=== PATIENT | male | born 1985 | race Caucasian/White ===

== ENCOUNTER 2016-10-11 17:52 | Emergency (ER) | payer OTHER ==
--- NOTE | 2016-10-11 20:14 | ED CLINICAL REPORT ---
Clinical Report - Physicians/Mid Levels [facility] [address] [place] [address] 10/11/2016 17:52 Patient: CAMILA WAKEFIELD Time Seen: 18:11. Arrived- By private vehicle. Historian- patient. HISTORY OF PRESENT ILLNESS Chief Complaint: INGUINAL MASS. This started today and is still present. The problem is described as moderate. It was abrupt in onset and has been constant and waxing/waning. No penile discharge, discomfort with urination, urinary frequency or urgency of urination. He has had mild right-sided inguinal swelling, with pain. Similar symptoms previously: None. REVIEW OF SYSTEMS No chills, fever, sweats, calf pain or chest pain. No cough, difficulty breathing, pedal edema, palpitations or abdominal pain. No diarrhea, nausea, vomiting or urinary problems. All systems otherwise negative, except as recorded above. PAST HISTORY Problems: Concussion. Tip Amputation, Finger. Pancreatitis. Medications: None. Allergies: None. SOCIAL HISTORY Current every day light tobacco smoker (cigarette)- less than 1/2 a pack per day. Occasional alcohol use. 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 FAMILY HISTORY Denies family medical history. ADDITIONAL NOTES The nursing notes have been reviewed. PHYSICAL EXAM Vital Signs: 10/11/2016 18:00 BP: 146/74. HR: 98. RR: 16. O2 saturation: 100%. Temp: 98.3 F. Have been reviewed. Appearance: Alert. ENT: Pharynx normal. Neck: Neck supple. CVS: Heart sounds normal. Respiratory: Breath sounds normal. Abdomen: Soft and nontender. Bowel sounds normal. No organomegaly. No mass. Back: Normal external inspection. : Tenderness (R inguinal region). No urethral discharge, genital lesion or scrotal mass or swelling. Skin: Skin warm and dry. Normal skin color. Normal skin turgor. (multiple small areas of folliculitis noted on his anterior thighs). Extremities: Extremities exhibit normal ROM. No calf tenderness. No lower extremity edema. LABS, X-RAYS, AND EKG Scrotal Sonogram: right inguinal enlarged lymph node. The study was independently viewed by me. PROGRESS AND PROCEDURES Course of Care: Patient is stable. Patient/family counseled. Old medical records ordered. Disposition: Discharged. Condition: stable. CLINICAL IMPRESSION Acute right inguinal lymphadenitis Superficial folliculitis INSTRUCTIONS Warnings: Further evaluation is necessary. GENERAL WARNINGS: Return or contact your physician immediately if your condition worsens or changes unexpectedly, if not improving as expected, or if other problems arise. Prescription Medications: Septra DS 800 mg / 160 mg: take 1 tablet orally every 12 hours for 7 days. Dispense fourteen (14). No refills. Substitution is permissible. Understanding of the discharge instructions verbalized by patient. Follow-up with: [facility], , , [address], , [place], [id number] Follow up in five days. Call for the next available appointment. (Electronically signed by Mark Maurice MD 10/12/2016 9:56)
--- NOTE | 2016-10-11 20:14 | ED ORDER SUMMARY ---
..... 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 (20:30 10/11/2016)] [Electronically signed by Mark Maurice MD (09:56 10/12/2016)] [Electronically locked/signed by Isac Garcia R.N. (20:30 10/11/2016)]
--- NOTE | 2016-10-11 20:14 | ED ORDER SUMMARY ---
..... Patient: CAMILA WAKEFIELD OrderSheet [facility] VisitID: [id number] [address] [place] [address] 31y, M Registration Date/Time: 10/11/2016 ORDER SHEET Weight: 77.1 kg (stated) Allergies: None GENERAL ORDERS: US Scrotum/Testicular Urgent (18:40 10/11/2016 Clementine COOPER) (k 18:43 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 (20:30 10/11/2016)] [Electronically signed by Mark Maurice MD (09:56 10/12/2016)] [Electronically locked/signed by Isac Garcia R.N. (20:30 10/11/2016)]
--- NOTE | 2016-10-11 20:14 | ED CLINICAL REPORT ---
Clinical Report - Physicians/Mid Levels [facility] [address] [place] [address] 10/11/2016 17:52 Patient: CAMILA WAKEFIELD Time Seen: 18:11. Arrived- By private vehicle. Historian- patient. HISTORY OF PRESENT ILLNESS Chief Complaint: INGUINAL MASS. This started today and is still present. The problem is described as moderate. It was abrupt in onset and has been constant and waxing/waning. No penile discharge, discomfort with urination, urinary frequency or urgency of urination. He has had mild right-sided inguinal swelling, with pain. Similar symptoms previously: None. REVIEW OF SYSTEMS No chills, fever, sweats, calf pain or chest pain. No cough, difficulty breathing, pedal edema, palpitations or abdominal pain. No diarrhea, nausea, vomiting or urinary problems. All systems otherwise negative, except as recorded above. PAST HISTORY Problems: Concussion. Tip Amputation, Finger. Pancreatitis. Medications: None. Allergies: None. SOCIAL HISTORY Current every day light tobacco smoker (cigarette)- less than 1/2 a pack per day. Occasional alcohol use. 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 FAMILY HISTORY Denies family medical history. ADDITIONAL NOTES The nursing notes have been reviewed. PHYSICAL EXAM Vital Signs: 10/11/2016 18:00 BP: 146/74. HR: 98. RR: 16. O2 saturation: 100%. Temp: 98.3 F. Have been reviewed. Appearance: Alert. ENT: Pharynx normal. Neck: Neck supple. CVS: Heart sounds normal. Respiratory: Breath sounds normal. Abdomen: Soft and nontender. Bowel sounds normal. No organomegaly. No mass. Back: Normal external inspection. : Tenderness (R inguinal region). No urethral discharge, genital lesion or scrotal mass or swelling. Skin: Skin warm and dry. Normal skin color. Normal skin turgor. (multiple small areas of folliculitis noted on his anterior thighs). Extremities: Extremities exhibit normal ROM. No calf tenderness. No lower extremity edema. LABS, X-RAYS, AND EKG Scrotal Sonogram: right inguinal enlarged lymph node. The study was independently viewed by me. PROGRESS AND PROCEDURES Course of Care: Patient is stable. Patient/family counseled. Old medical records ordered. Disposition: Discharged. Condition: stable. CLINICAL IMPRESSION Acute right inguinal lymphadenitis Superficial folliculitis INSTRUCTIONS Warnings: Further evaluation is necessary. GENERAL WARNINGS: Return or contact your physician immediately if your condition worsens or changes unexpectedly, if not improving as expected, or if other problems arise. Prescription Medications: Septra DS 800 mg / 160 mg: take 1 tablet orally every 12 hours for 7 days. Dispense fourteen (14). No refills. Substitution is permissible. Understanding of the discharge instructions verbalized by patient. Follow-up with: [facility], , , [address], , [place], [id number] Follow up in five days. Call for the next available appointment. (Electronically signed by aMrk Maurice MD 10/12/2016 9:56)
--- NOTE | 2016-10-11 20:14 | ED NURSING NOTES ---
Clinical Report - Nurses [facility] [address] [place] [address] 10/11/2016 17:52 Patient: ARSALAN WAKEFIELD TRIAGE Triage time 18:00. Acuity: LEVEL 4. Chief Complaint: (abd. pain and "lump on my groin"). Alert. No acute distress. SEPSIS SCREEN: Sepsis Screen. Negative (no infection suspected/documented). IRMA COMA SCORE: [place] Coma Scale: 15- eyes open spontaneously (4); best verbal response- oriented x 4 (5); best motor response- obeys commands (6). --18:03 Simona Voss R.N. 18:00 10/11/16. BP: 146/74. HR: 98. RR: 16. O2 saturation: 100%. Temp: 98.3 F. Pain level now 7/10. --18:03 Simona Voss R.N. Acuity: LEVEL 3. --18:28 Simona Voss R.N. Weight: 77.1 kg stated. Height/Length: 69 inches Per Patient. BMI: 25.1. --18:00 Simona Voss R.N. Medications None. --18:01 Simona Voss R.N. Allergies None. --18:01 Simona Voss R.N. History Arrived by private vehicle. Historian: patient. Unaccompanied. Primary physician (none). This started today. 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 PAST MEDICAL HX: Immunizations: up-to-date. SOCIAL HX: Light tobacco smoker (cigarette)- less than 1/2 a pack per day. Occasional alcohol use. History of drug use. (meth and heroin: pt states he has not used for x3 years). ABUSE ASSESSMENT: No report of abuse. NUTRITIONAL RISK ASSESSMENT: The nutritional risk assessment revealed no deficiencies. FUNCTIONAL ASSESSMENT: Functional assessment: no impairments noted. LEARNING NEEDS ASSESSMENT: The learning needs assessment revealed no barriers. --18:03 Siomna Voss R.N. PROBLEMS: Concussion. Tip Amputation, Finger. Pancreatitis. --18:01 Simona Voss R.N. Interventions ID band on patient. Ambulatory. --18:03 Simona Voss R.N. PHYSICAL ASSESSMENT Ambulatory to room. GENERAL / NEURO / PSYCH: Alert. Appears in no acute distress. RESPIRATORY: Respirations not labored. CVS: Capillary refill less than 2 seconds. GI / : Abdomen soft. Abdominal tenderness in the right lower quadrant. SKIN: Skin intact. Skin is warm and dry. --18:04 Simona Voss R.N. NURSING PROGRESS NOTES Patient gowned. Head of bed elevated. Two patient identifiers checked. Call light placed in reach. Side rails up x 2. Bed placed in lowest position. Brakes of bed on. Patient ready for evaluation- chart flagged. --18:04 Simona Voss R.N. Care transferred and report given (to ABI Chau). --19:05 Simona Voss R.N. Care transferred and report received (ABI Jarvis). --19:14 Isac Garcia R.N. The initial plan of care for this patient has been created This plan of care was discussed with the patient. Reassurance given to the patient. The patient is calm. ( Arsalan describes pain in his R groin.). GENERAL / NEURO / PSYCH: Alert. Appears in no acute distress. [place] Coma Scale: 15- eyes open spontaneously (4); best verbal response- oriented x 4 (5); best motor response- obeys commands (6). Oriented X 4. The patient is cooperative. RESPIRATORY: No respiratory distress. SKIN: Skin is warm and dry. Skin color within normal limits. --19:26 Isac Garcia R.N. 19:24 10/11/16. BP: 101/71 (regular adult cuff) taken on the left arm, via an automated monitor, while lying. HR: 102 (tachycardic). RR: 14 (regular, unlabored and normal). O2 saturation: 99% on room air. Temp: 99.8 F (oral). Pain level now: 5/10. --19:26 Isac Garcia R.N. DISPOSITION / DISCHARGE Departure time: 20:26. Condition at departure: stable. The goals identified in the patient's plan of care were met. No learning barriers present. Discharge instructions provided and reviewed with the patient. Reviewed medication(s) side effects, precautions, dosing and course information. Prescription(s) given to the patient (Arsalan verbalizes importance of finishing all prescribed antibiotics.). Reviewed referral to a primary care physician for followup (Vickey verbalizes importance of f/u with [facility] and knows where to locate the number in his d/c instructions.). Patient verbalized understanding. Written instructions provided in [place]uran. ( Arsalan verbalizes understanding of all d/c instructions including need for f/u with PCP. He has no questions and voices no concerns at this time.). The patient was discharged by the physician. He was discharged home and unaccompanied at time of discharge. He left the Emergency Department ambulatory and via private vehicle. Patient driving. IRMA COMA SCORE: Irma Coma Scale: 15- eyes open spontaneously (4); best verbal response- oriented x 4 (5); best motor response- obeys commands (6). --20:29 Isac Garcia R.N. 20:27 10/11/16. BP: 119/72 (regular adult cuff) taken on the left arm, via an automated monitor, while sitting. HR: 86 (normal rate). RR: 14 (regular, unlabored and normal). O2 saturation: 98% on room air. Temp: 99.5 F (oral). Pain level now: 5/10. --20:29 Isac Garcia R.N. Locked/Released at 10/11/2016 20:30 by Isac Garcia R.N.
--- NOTE | 2016-10-11 20:14 | ED NURSING NOTES ---
Clinical Report - Nurses [facility] [address] [place] [address] 10/11/2016 17:52 Patient: ARSALAN WAKEFIELD TRIAGE Triage time 18:00. Acuity: LEVEL 4. Chief Complaint: (abd. pain and "lump on my groin"). Alert. No acute distress. SEPSIS SCREEN: Sepsis Screen. Negative (no infection suspected/documented). IRMA COMA SCORE: Call Coma Scale: 15- eyes open spontaneously (4); best verbal response- oriented x 4 (5); best motor response- obeys commands (6). --18:03 Simona Voss R.N. 18:00 10/11/16. BP: 146/74. HR: 98. RR: 16. O2 saturation: 100%. Temp: 98.3 F. Pain level now 7/10. --18:03 Simona Voss R.N. Acuity: LEVEL 3. --18:28 Simona Voss R.N. Weight: 77.1 kg stated. Height/Length: 69 inches Per Patient. BMI: 25.1. --18:00 Simona Voss R.N. Medications None. --18:01 Simona Voss R.N. Allergies None. --18:01 Simona Voss R.N. History Arrived by private vehicle. Historian: patient. Unaccompanied. Primary physician (none). This started today. 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 PAST MEDICAL HX: Immunizations: up-to-date. SOCIAL HX: Light tobacco smoker (cigarette)- less than 1/2 a pack per day. Occasional alcohol use. History of drug use. (meth and heroin: pt states he has not used for x3 years). ABUSE ASSESSMENT: No report of abuse. NUTRITIONAL RISK ASSESSMENT: The nutritional risk assessment revealed no deficiencies. FUNCTIONAL ASSESSMENT: Functional assessment: no impairments noted. LEARNING NEEDS ASSESSMENT: The learning needs assessment revealed no barriers. --18:03 Simona Voss R.N. PROBLEMS: Concussion. Tip Amputation, Finger. Pancreatitis. --18:01 Simona Voss R.N. Interventions ID band on patient. Ambulatory. --18:03 Simona Voss R.N. PHYSICAL ASSESSMENT Ambulatory to room. GENERAL / NEURO / PSYCH: Alert. Appears in no acute distress. RESPIRATORY: Respirations not labored. CVS: Capillary refill less than 2 seconds. GI / : Abdomen soft. Abdominal tenderness in the right lower quadrant. SKIN: Skin intact. Skin is warm and dry. --18:04 Simona Voss R.N. NURSING PROGRESS NOTES Patient gowned. Head of bed elevated. Two patient identifiers checked. Call light placed in reach. Side rails up x 2. Bed placed in lowest position. Brakes of bed on. Patient ready for evaluation- chart flagged. --18:04 Simona Voss R.N. Care transferred and report given (to ABI Chau). --19:05 Simona Voss R.N. Care transferred and report received (ABI Jarvis). --19:14 Isac Garcia R.N. The initial plan of care for this patient has been created This plan of care was discussed with the patient. Reassurance given to the patient. The patient is calm. ( Arsalan describes pain in his R groin.). GENERAL / NEURO / PSYCH: Alert. Appears in no acute distress. Call Coma Scale: 15- eyes open spontaneously (4); best verbal response- oriented x 4 (5); best motor response- obeys commands (6). Oriented X 4. The patient is cooperative. RESPIRATORY: No respiratory distress. SKIN: Skin is warm and dry. Skin color within normal limits. --19:26 Isac Garcia R.N. 19:24 10/11/16. BP: 101/71 (regular adult cuff) taken on the left arm, via an automated monitor, while lying. HR: 102 (tachycardic). RR: 14 (regular, unlabored and normal). O2 saturation: 99% on room air. Temp: 99.8 F (oral). Pain level now: 5/10. --19:26 Isac Garcia R.N. DISPOSITION / DISCHARGE Departure time: 20:26. Condition at departure: stable. The goals identified in the patient's plan of care were met. No learning barriers present. Discharge instructions provided and reviewed with the patient. Reviewed medication(s) side effects, precautions, dosing and course information. Prescription(s) given to the patient (Arsalan verbalizes importance of finishing all prescribed antibiotics.). Reviewed referral to a primary care physician for followup (Vickey verbalizes importance of f/u with [facility] and knows where to locate the number in his d/c instructions.). Patient verbalized understanding. Written instructions provided in Vincentian. ( Arsalan verbalizes understanding of all d/c instructions including need for f/u with PCP. He has no questions and voices no concerns at this time.). The patient was discharged by the physician. He was discharged home and unaccompanied at time of discharge. He left the Emergency Department ambulatory and via private vehicle. Patient driving. IRMA COMA SCORE: Irma Coma Scale: 15- eyes open spontaneously (4); best verbal response- oriented x 4 (5); best motor response- obeys commands (6). --20:29 Isac Garcia R.N. 20:27 10/11/16. BP: 119/72 (regular adult cuff) taken on the left arm, via an automated monitor, while sitting. HR: 86 (normal rate). RR: 14 (regular, unlabored and normal). O2 saturation: 98% on room air. Temp: 99.5 F (oral). Pain level now: 5/10. --20:29 Isac Garcia R.N. Locked/Released at 10/11/2016 20:30 by Isac Garcia R.N.
--- NOTE | 2016-10-11 20:33 | DIAGNOSTIC IMAGING REPORT ---
PROCEDURE: US SCROTUM/TESTICLE INDICATION: Right groin and scrotal pain. TECHNIQUE: Andrew scale and color Doppler sonographic images through the scrotum were obtained. COMPARISON: None. FINDINGS: RIGHT TESTICLE: Right testicle is of normal size (5.2 x 3.2 x 2.6 cm) with normal vascularity. Right epididymis is normal (1.3 x 0.9 cm) with right epididymal cyst (8 mm). LEFT TESTICLE: Left testicle is of normal size (6.4 x 3.2 x 2.9 cm) with normal vascularity. Left epididymis is normal (1.5 x 1.5 cm) with minor cystic changes (2 mm, 5 mm). There is mild right inguinal adenopathy (largest on the 1.8 cm) which corresponds to a region of patient's clinical symptoms. No evidence of hernia. IMPRESSION: 1. Mild right inguinal adenopathy which may be a reflection of inflammatory process (e.g., cellulitis). 2. Normal testicles. 3. Bilateral epididymal cysts (most likely incidental findings).
--- NOTE | 2016-10-12 09:56 | ED MED RECONCILIATION SUMMARY ---
Patient: CAMILA WAKEFIELD Medication Reconciliation Report [facility] VisitID: [id number] [address] [place] [address] 31y, M Registration Date/Time: 10/11/2016 Weight: 77.1 kg Height/Length: 69 in. BMI: 25.1 ALLERGIES: None The patient's Home Medications are listed below: NONE. The source(s) of the original Home Medication information: Not obtained. The following Medications were given to the patient in the Emergency Department: None. The following Medications were prescribed to the patient: Septra DS 800 mg / 160 mg: take 1 tablet orally every 12 hours for 7 days. Dispense fourteen (14). No refills. Substitution is permissible. -- Mark Maurice MD
--- NOTE | 2016-10-12 09:56 | ED MED RECONCILIATION SUMMARY ---
Patient: CAMILA WAKEFIELD Medication Reconciliation Report [facility] VisitID: [id number] [address] [place] [address] 31y, M Registration Date/Time: 10/11/2016 Weight: 77.1 kg Height/Length: 69 in. BMI: 25.1 ALLERGIES: None The patient's Home Medications are listed below: NONE. The source(s) of the original Home Medication information: Not obtained. The following Medications were given to the patient in the Emergency Department: None. The following Medications were prescribed to the patient: Septra DS 800 mg / 160 mg: take 1 tablet orally every 12 hours for 7 days. Dispense fourteen (14). No refills. Substitution is permissible. -- Mark Maurice MD
--- NOTE | 2016-10-12 09:56 | ED MAR SUMMARY ---
..... Medication Administration Record [facility] [address], [place] [id number] Patient: CMAILA WAKEFIELD Visit ID: [id number] 31y, M Weight: 77.1 kg Height/Length: 69 in BMI: 25.1 ALLERGIES: None
--- NOTE | 2016-10-12 09:56 | ED DISCHARGE INSTRUCTIONS ---
Patient: CAMILA WAKEFIELD General Instructions [facility] VisitID: [id number] [address] [place] [address] 31y, M Registration Date/Time: 10/11/2016 Acute right inguinal lymphadenitis Superficial folliculitis INSTRUCTIONS Warnings: Further evaluation is necessary. GENERAL WARNINGS: Return or contact your physician immediately if your condition worsens or changes unexpectedly, if not improving as expected, or if other problems arise. Prescription Medications: Septra DS 800 mg / 160 mg: take 1 tablet orally every 12 hours for 7 days. Dispense fourteen (14). No refills. Substitution is permissible. Understanding of the discharge instructions verbalized by patient. Follow-up with: [facility], , , [address] [place], [id number] Follow up in five days. Call for the next available appointment. ADDITIONAL INFORMATION Lymph Node Infection [Local, Antibiotic Treatment] You have a bacterial infection of the lymph node. The lymph nodes are part of the immune system and become swollen and tender when there is a nearby infection or inflammation. The lymph nodes are found under the jaw and along the side of the neck, in the armpits and in the groin. An infection or inflammation in the tissues nearby causes the lymph nodes to swell and become tender. When a bacterial infection occurs in the lymph node, it becomes very painful and the nearby skin gets red and warm. There may also be a fever. Antibiotics and hot compresses are used to treat this infection. The pain and redness will decrease over the next 7-10 days. Swelling may take several months to go away. Sometimes an ABSCESS (with pus) forms inside the lymph node. If this happens, antibiotics may not be enough to cure the infection. Minor Surgery may be needed to drain the pus. Home Care: Take all of the antibiotic medicine exactly as prescribed until it is gone. Be careful not to miss any doses, especially during the first few days. Make a hot compress by running hot water over a face cloth. Apply it to the sore area until it cools off. Repeat this for 20 minutes. Apply the hot compress three times a day for the first three days or until the pain and redness begin to improve. The heat will increase the blood flow to the area and speed the healing process. You may use acetaminophen (Tylenol) or ibuprofen (Motrin, Advil) to control pain and fever, unless another medicine was prescribed for this. Do not use ibuprofen in children under six months of age. [NOTE: If you have chronic liver or kidney disease or ever had a stomach ulcer or GI bleeding, talk with your doctor before using these medicines.] (Aspirin should never be used in anyone under 18 years of age who is ill with a fever. It may cause severe liver damage.) Follow Up with your doctor or this facility after completion of the antibiotics or as directed. Get Prompt Medical Attention if any of the following occur: Increasing redness, swelling or pain in the lymph node Pus or fluid drainage from the lymph node Difficulty breathing or swallowing Fever remains over 100.5F (38.0C) oral or 101.5F (38.3C) rectal for more than 2 days of treatment Folliculitis Folliculitis is an inflammation of the hair follicles (where the hair comes out of the skin). It is most often caused by infection with bacteria such as staph. Folliculitis usually looks like small white pimples in hairy areas of the skin. Severe cases may cause permanent hair loss and scarring. The condition is most often triggered by friction against the skin due to tight-fitting clothing. Ingrown hairs on the face of men are another cause. One type of folliculitis occurs after soaking in a hot tub when the water is contaminated with bacteria. Simple folliculitis usually clears by itself in a few days. Folliculitis that does not go away or comes back may need medical treatment. Oral and topical antibioticsmay beused. Home care The following will help you care for folliculitis at home: Wash the area with soap and water when you bathe, as usual. Unless another medicine was prescribed, you can apply a topical antibiotic cream twice a day. Follow-up care Follow up with your doctor as advised by our staff. When to seek medical care Get prompt medical attention if any of the following occur: Rash lasts longer than three days Rash changes appearance or spreads Abscess (boil) forms with local swelling, tenderness, or fluid drainage Fever of 100.4F (38C) or higher, or as directed by your health care provider Sulfamethoxazole, Trimethoprim Oral tablet What is this medicine? SULFAMETHOXAZOLE; TRIMETHOPRIM or SMX-TMP (suhl fuh meth OK mikhail zohl; trye METH oh prim) is a combination of a sulfonamide antibiotic and a second antibiotic, trimethoprim. It is used to treat or prevent certain kinds of bacterial infections. It will not work for colds, flu, or other viral infections. How should I use this medicine? Take this medicine by mouth with a full glass of water. Follow the directions on the prescription label. Take your medicine at regular intervals. Do not take it more often than directed. Do not skip doses or stop your medicine early. Talk to your forestry crew chief regarding the use of this medicine in children. Special care may be needed. This medicine has been used in children as young as 2 months of age. What side effects may I notice from receiving this medicine? Side effects that you should report to your doctor or health hospice home care coordinator as soon as possible: allergic reactions like skin rash or hives, swelling of the face, lips, or tongue breathing problems fever or chills, sore throat irregular heartbeat, chest pain joint or muscle pain pain or difficulty passing urine red pinpoint spots on skin redness, blistering, peeling or loosening of the skin, including inside the mouth unusual bleeding or bruising unusually weak or tired yellowing of the eyes or skin Side effects that usually do not require medical attention (report to your doctor or health hospice home care coordinator if they continue or are bothersome): diarrhea dizziness headache loss of appetite nausea, vomiting nervousness What may interact with this medicine? Do not take this medicine with any of the following medications: aminobenzoate potassium dofetilide metronidazole This medicine may also interact with the following medications: HIEU inhibitors like benazepril, enalapril, lisinopril, and ramipril cyclosporine digoxin diuretics indomethacin medicines for diabetes methenamine methotrexate phenytoin potassium supplements pyrimethamine sulfinpyrazone tricyclic antidepressants warfarin What if I miss a dose? If you miss a dose, take it as soon as you can. If it is almost time for your next dose, take only that dose. Do not take double or extra doses. Where should I keep my medicine? Keep out of the reach of children. Store at room temperature between 20 to 25 degrees C (68 to 77 degrees F). Protect from light. Throw away any unused medicine after the expiration date. What should I tell my health care provider before I take this medicine? They need to know if you have any of these conditions: anemia asthma being treated with anticonvulsants if you frequently drink alcohol containing drinks kidney disease liver disease low level of folic acid or [id number] dehydrogenase poor nutrition or malabsorption porphyria severe allergies thyroid disorder an unusual or allergic reaction to sulfamethoxazole, trimethoprim, sulfa drugs, other medicines, foods, dyes, or preservatives or trying to get breast-feeding What should I watch for while using this medicine? Tell your doctor or health hospice home care coordinator if your symptoms do not improve. Drink several glasses of water a day to reduce the risk of kidney problems. Do not treat diarrhea with over the counter products. Contact your doctor if you have diarrhea that lasts more than 2 days or if it is severe and watery. This medicine can make you more sensitive to the sun. Keep out of the sun. If you cannot avoid being in the sun, wear protective clothing and use a sunscreen. Do not use sun lamps or tanning beds/booths. You have been given the following additional information: Cervical Adenitis, Antiobiotic Treatment Folliculitis Sulfamethoxazole, Trimethoprim Oral tablet (Electronically signed by Mark Maurice MD 10/12/2016 9:56)
--- NOTE | 2016-10-12 09:56 | ED DISCHARGE INSTRUCTIONS ---
Patient: CAMILA WAKEFIELD General Instructions [facility] VisitID: [id number] [address] [place] [address] 31y, M Registration Date/Time: 10/11/2016 Acute right inguinal lymphadenitis Superficial folliculitis INSTRUCTIONS Warnings: Further evaluation is necessary. GENERAL WARNINGS: Return or contact your physician immediately if your condition worsens or changes unexpectedly, if not improving as expected, or if other problems arise. Prescription Medications: Septra DS 800 mg / 160 mg: take 1 tablet orally every 12 hours for 7 days. Dispense fourteen (14). No refills. Substitution is permissible. Understanding of the discharge instructions verbalized by patient. Follow-up with: [facility], , , [address] [place], [id number] Follow up in five days. Call for the next available appointment. ADDITIONAL INFORMATION Lymph Node Infection [Local, Antibiotic Treatment] You have a bacterial infection of the lymph node. The lymph nodes are part of the immune system and become swollen and tender when there is a nearby infection or inflammation. The lymph nodes are found under the jaw and along the side of the neck, in the armpits and in the groin. An infection or inflammation in the tissues nearby causes the lymph nodes to swell and become tender. When a bacterial infection occurs in the lymph node, it becomes very painful and the nearby skin gets red and warm. There may also be a fever. Antibiotics and hot compresses are used to treat this infection. The pain and redness will decrease over the next 7-10 days. Swelling may take several months to go away. Sometimes an ABSCESS (with pus) forms inside the lymph node. If this happens, antibiotics may not be enough to cure the infection. Minor Surgery may be needed to drain the pus. Home Care: Take all of the antibiotic medicine exactly as prescribed until it is gone. Be careful not to miss any doses, especially during the first few days. Make a hot compress by running hot water over a face cloth. Apply it to the sore area until it cools off. Repeat this for 20 minutes. Apply the hot compress three times a day for the first three days or until the pain and redness begin to improve. The heat will increase the blood flow to the area and speed the healing process. You may use acetaminophen (Tylenol) or ibuprofen (Motrin, Advil) to control pain and fever, unless another medicine was prescribed for this. Do not use ibuprofen in children under six months of age. [NOTE: If you have chronic liver or kidney disease or ever had a stomach ulcer or GI bleeding, talk with your doctor before using these medicines.] (Aspirin should never be used in anyone under 18 years of age who is ill with a fever. It may cause severe liver damage.) Follow Up with your doctor or this facility after completion of the antibiotics or as directed. Get Prompt Medical Attention if any of the following occur: Increasing redness, swelling or pain in the lymph node Pus or fluid drainage from the lymph node Difficulty breathing or swallowing Fever remains over 100.5F (38.0C) oral or 101.5F (38.3C) rectal for more than 2 days of treatment Folliculitis Folliculitis is an inflammation of the hair follicles (where the hair comes out of the skin). It is most often caused by infection with bacteria such as staph. Folliculitis usually looks like small white pimples in hairy areas of the skin. Severe cases may cause permanent hair loss and scarring. The condition is most often triggered by friction against the skin due to tight-fitting clothing. Ingrown hairs on the face of men are another cause. One type of folliculitis occurs after soaking in a hot tub when the water is contaminated with bacteria. Simple folliculitis usually clears by itself in a few days. Folliculitis that does not go away or comes back may need medical treatment. Oral and topical antibioticsmay beused. Home care The following will help you care for folliculitis at home: Wash the area with soap and water when you bathe, as usual. Unless another medicine was prescribed, you can apply a topical antibiotic cream twice a day. Follow-up care Follow up with your doctor as advised by our staff. When to seek medical care Get prompt medical attention if any of the following occur: Rash lasts longer than three days Rash changes appearance or spreads Abscess (boil) forms with local swelling, tenderness, or fluid drainage Fever of 100.4F (38C) or higher, or as directed by your health care provider Sulfamethoxazole, Trimethoprim Oral tablet What is this medicine? SULFAMETHOXAZOLE; TRIMETHOPRIM or SMX-TMP (suhl fuh meth OK mikhail zohl; trye METH oh prim) is a combination of a sulfonamide antibiotic and a second antibiotic, trimethoprim. It is used to treat or prevent certain kinds of bacterial infections. It will not work for colds, flu, or other viral infections. How should I use this medicine? Take this medicine by mouth with a full glass of water. Follow the directions on the prescription label. Take your medicine at regular intervals. Do not take it more often than directed. Do not skip doses or stop your medicine early. Talk to your senior scrum master regarding the use of this medicine in children. Special care may be needed. This medicine has been used in children as young as 2 months of age. What side effects may I notice from receiving this medicine? Side effects that you should report to your doctor or health child care giver as soon as possible: allergic reactions like skin rash or hives, swelling of the face, lips, or tongue breathing problems fever or chills, sore throat irregular heartbeat, chest pain joint or muscle pain pain or difficulty passing urine red pinpoint spots on skin redness, blistering, peeling or loosening of the skin, including inside the mouth unusual bleeding or bruising unusually weak or tired yellowing of the eyes or skin Side effects that usually do not require medical attention (report to your doctor or health child care giver if they continue or are bothersome): diarrhea dizziness headache loss of appetite nausea, vomiting nervousness What may interact with this medicine? Do not take this medicine with any of the following medications: aminobenzoate potassium dofetilide metronidazole This medicine may also interact with the following medications: HIEU inhibitors like benazepril, enalapril, lisinopril, and ramipril cyclosporine digoxin diuretics indomethacin medicines for diabetes methenamine methotrexate phenytoin potassium supplements pyrimethamine sulfinpyrazone tricyclic antidepressants warfarin What if I miss a dose? If you miss a dose, take it as soon as you can. If it is almost time for your next dose, take only that dose. Do not take double or extra doses. Where should I keep my medicine? Keep out of the reach of children. Store at room temperature between 20 to 25 degrees C (68 to 77 degrees F). Protect from light. Throw away any unused medicine after the expiration date. What should I tell my health care provider before I take this medicine? They need to know if you have any of these conditions: anemia asthma being treated with anticonvulsants if you frequently drink alcohol containing drinks kidney disease liver disease low level of folic acid or [id number] dehydrogenase poor nutrition or malabsorption porphyria severe allergies thyroid disorder an unusual or allergic reaction to sulfamethoxazole, trimethoprim, sulfa drugs, other medicines, foods, dyes, or preservatives or trying to get breast-feeding What should I watch for while using this medicine? Tell your doctor or health child care giver if your symptoms do not improve. Drink several glasses of water a day to reduce the risk of kidney problems. Do not treat diarrhea with over the counter products. Contact your doctor if you have diarrhea that lasts more than 2 days or if it is severe and watery. This medicine can make you more sensitive to the sun. Keep out of the sun. If you cannot avoid being in the sun, wear protective clothing and use a sunscreen. Do not use sun lamps or tanning beds/booths. You have been given the following additional information: Cervical Adenitis, Antiobiotic Treatment Folliculitis Sulfamethoxazole, Trimethoprim Oral tablet (Electronically signed by Mark Maurice MD 10/12/2016 9:56)
--- NOTE | 2016-10-12 09:56 | ED MAR SUMMARY ---
..... Medication Administration Record [facility] [address] [place], [place] [id number] Patient: CAMILA WAKEFIELD Visit ID: [id number] 31y, M Weight: 77.1 kg Height/Length: 69 in BMI: 25.1 ALLERGIES: None
== END 2016-10-11 20:26 | disposition home or self-care (01) ==
LOC: ED SRH 17:52
DX: L04.9 Acute lymphadenitis, unspecified (principal); L73.9 Follicular disorder, unspecified; K85.90 Acute pancreatitis without necrosis or infection, unspecified; F17.210 Nicotine dependence, cigarettes, uncomplicated